=== PATIENT | male | born 1965 ===

== ENCOUNTER → 2021-11-17 | Outpatient (CLI) | payer MEDICAID ==
[2021-11-17 18:08] LABS: MEAN CORP HGB 29.2 pg (26-34); RED CELL DISTRIBUTION WIDTH 13.7 % (11.5-14.5)
[2021-11-17 18:12] LABS: BILIRUBIN,URINE 1+ (NEGATIVE)
[2021-11-17 18:17] LABS: CARBON DIOXIDE 28.1 mmol/L (20.0-32)
== END | disposition home or self-care (01) ==
LOC: NPLAB 17:52
PROVIDERS: ATTEND Internal Medicine
DX: I12.9 Hypertensive chronic kidney disease with stage 1 through stage 4 chronic kidney disease, or unspecified chronic kidney disease (principal); E78.5 Hyperlipidemia, unspecified; N18.9 Chronic kidney disease, unspecified; F32.9 Major depressive disorder, single episode, unspecified; G10 Huntington's disease
CPT/HCPCS: 36415; 80053; 81001; 85027; 87086